=== PATIENT | female | born 1980 | race Caucasian/White ===

== ENCOUNTER 2020-04-13 19:09 | Observation (INO) | payer SELFPAY ==
[~2020-04-13] VITALS: Ht 170.2 cm; Wt 59.1 kg
[2020-04-13 19:26] LABS: BILIRUBIN NEGATIVE (NEGATIVE); GLUCOSE NEGATIVE (NEGATIVE); KETONE SMALL mg/dL (NEGATIVE); NITRITE NEGATIVE (NEGATIVE)
[2020-04-13 19:27] LABS: BACTERIA MODERATE /hpf (NEGATIVE); EPITHELIAL CELLS 0-5 /hpf (0-5); RED CELLS - URINE 0-5 /hpf (0-5); WHITE CELLS - URINE 0-5 /hpf (NEGATIVE)
[2020-04-13 19:38] LABS: UDS - AMPHET POSITIVE QUAL (NEGATIVE); UDS - BARB NEGATIVE QUAL (NEGATIVE); UDS - BENZO NEGATIVE QUAL (NEGATIVE); UDS - COCAINE NEGATIVE QUAL (NEGATIVE); UDS - OPIATE NEGATIVE QUAL (NEGATIVE); UDS - PCP NEGATIVE QUAL (NEGATIVE); UDS - THC POSITIVE QUAL (NEGATIVE)
[2020-04-13 19:43] LABS: BASOPHILS 0.3 % (0-2); EOSINOPHILS 3.7 % (0-7); HEMATOCRIT 37.4 % (36.0-48.0); HEMOGLOBIN 12.6 g/dL (12-16); IMMATURE GRANULOCYTES 0.3 % (0-5); MCH 31.4 pg (26.0-34.0); MCHC 33.7 g/dL (31.0-37.0); MCV 93.3 fL (80.0-100.0); MEAN PLATELET VOLUME 11.7 fL (7.4-10.4); MONOCYTES 11.5 % (2-11); NEUTROPHILS 60.2 % (40-80); PLATELET COUNT 285 10x3/uL (130-400); RBC 4.01 10x6/uL (4.00-5.40); RDW 12.3 % (11.5-14.5); WBC 8.6 10x3/uL (4.8-10.8)
[2020-04-13] MEDS ORDERED: PERCOCET 10-321 EAC1 PO (19:44)
--- NOTE | 2020-04-13 19:50 | NUR ---
ADMINISTERED AMMONIA INHALENT UNDER NOSE PER DR. HOLLOWAY ORDER. PT THRASHES HEAD SIDE TO SIDE. PLACED UNDER NOSE AGAIN AND PT OPENS EYES. COAXED PT TO SPEAK AND PLACED UNDER NOSE AGAIN. PT BEGINS TO SPEAK AND ANSWER QUESTIONS.
[2020-04-13 19:53] LABS: CALC OSMOLALITY 279 mosm/kg (275-300); CALCIUM 9.4 mg/dL (8.5-10.1); CARBON DIOXIDE 25.2 mmol/L (21.0-32.0); CHLORIDE - SERUM 105 mmol/L (98-107); CREATININE - SERUM 0.8 mg/dL (0.6-1.3); GLUCOSE 101 mg/dL (74-106); HCG SERUM NEGATIVE (NEGATIVE); POTASSIUM - SERUM 4.1 mmol/L (3.5-5.1); SODIUM 140 mmol/L (136-145); UREA NITROGEN 16 mg/dL (7-18); eGFR NON AFRICAN AMERICAN 85 mL/min (90-120)
[2020-04-13 20:15] LABS: ALBUMIN 3.5 g/dL (3.4-5.0); ALKALINE PHOSPHATASE 63 U/L (30-120); ALT (SGPT) 21 U/L (10-68); APTT 31.4 SECONDS (22.8-39.4); BILIRUBIN - TOTAL 0.34 mg/dL (0.2-1.3); CKMB 0.3 U/L (0.0-3.6); CREATINE KINASE 247 UL (21-215); INR 1.18 (0.85-1.17); MAGNESIUM - SERUM 2.2 mg/dL (1.8-2.4); PROTEIN - SERUM 6.6 g/dL (6.4-8.2); PROTIME 14.9 SECONDS (11.6-15.0)
[2020-04-13 20:16] LABS: TROPONIN-I < 0.017 ng/mL (0.000-0.060)
[2020-04-13 21:47] VITALS: BP 104/70
--- NOTE | 2020-04-13 23:30 | NUR ---
RECEIVED PT TO FLOOR FROM ER VIA STRETCHER. PT A LITTLE UNCOOPERATIVE ABOUT GETTING INTO GOWN AND UNCOVERING HEAD TO ANSWER QUESTIONS. PT'S BOYFRIEND AT BEDSIDE. PT STATES SHE TAKES SEVERAL MEDICATIONS FOR VARIOUS THINGS SUCH HEART MEDICATIONS AND A PILL FOR BREAST CANCER BUT SHE DOESN'T KNOW THE NAMES OF ANY OF THE MEDICATIONS, EXCEPT FOR THE OXYCODONE THAT SHE DOES HAVE THE PRESCRIPTION BOTTLE FOR WITH A FEW PILLS LEFT IN IT. THESE ARE IN POSSESSION OF THE BOYFRIEND AT THIS TIME. PT STATES SHE TAKES THE OXYCODONE FOR BACK PAIN AND GASTROPARESIS PAIN SHE HAS AT TIMES. REVIEWED HISTORY. ASKED PT IF SHE HAS HAD SYNCOPAL EPISODES BEFORE TODAY. SHE SAYS SHE DOES SOMETIMES BUT USUALLY FOR ONLY A FEW MINUTES. UPON LEAVING ROOM, PT'S BOYFRIEND STATED THAT PT "PASSED OUT" AGAIN. NO RESPONSE TO CALLING HER NAME AND GENTLY SHAKING HER. TELEMETRY REPORTED 77 SR WITH NO CHANGES. PT RESPONDED IMMEDIATELY TO STERNAL RUB. BOYFRIEND MADE OK SIGN TO ME. INSTRUCTED PT/BOYFRIEND TO CALL IF ANY NEEDS. WILL REASSESS AND CONTINUE TO MONITOR.
[2020-04-14 00:10] VITALS: BP 96/47
[2020-04-14 02:30] VITALS: Ht 170.2 cm; Wt 59.1 kg
--- NOTE | 2020-04-14 02:39 | NUR ---
I have reviewed this patient and I concur with the Shift Assessment completed by the Licensed Practical Nurse today this shift.
[2020-04-14 04:30] VITALS: BP 93/53
[2020-04-14 06:19] LABS: BASOPHILS 0.4 % (0-2); EOSINOPHILS 5.2 % (0-7); HEMATOCRIT 34.4 % (36.0-48.0); HEMOGLOBIN 11.3 g/dL (12-16); IMMATURE GRANULOCYTES 0.1 % (0-5); LYMPHOCYTES 35.6 % (15-50); MCH 30.7 pg (26.0-34.0); MCHC 32.8 g/dL (31.0-37.0); MCV 93.5 fL (80.0-100.0); MEAN PLATELET VOLUME 11.7 fL (7.4-10.4); MONOCYTES 11.5 % (2-11); NEUTROPHILS 47.2 % (40-80); PLATELET COUNT 261 10x3/uL (130-400); RBC 3.68 10x6/uL (4.00-5.40); RDW 12.5 % (11.5-14.5); WBC 6.7 10x3/uL (4.8-10.8)
[2020-04-14 06:46] LABS: ALBUMIN 2.8 g/dL (3.4-5.0); ALKALINE PHOSPHATASE 53 U/L (30-120); ALT (SGPT) 19 U/L (10-68); BILIRUBIN - TOTAL 0.31 mg/dL (0.2-1.3); CARBON DIOXIDE 27.5 mmol/L (21.0-32.0); CHLORIDE - SERUM 110 mmol/L (98-107); CKMB 0.3 U/L (0.0-3.6); CREATINE KINASE 148 UL (21-215); CREATININE - SERUM 0.6 mg/dL (0.6-1.3); GLUCOSE 84 mg/dL (74-106); POTASSIUM - SERUM 3.5 mmol/L (3.5-5.1); PROTEIN - SERUM 5.1 g/dL (6.4-8.2); SODIUM 143 mmol/L (136-145); TROPONIN-I 0.018 ng/mL (0.000-0.060); eGFR NON AFRICAN AMERICAN > 90 mL/min (90-120)
[2020-04-14 06:47] LABS: CALC OSMOLALITY 282 mosm/kg (275-300); UREA NITROGEN 9 mg/dL (7-18)
--- NOTE | 2020-04-14 07:58 | NUR ---
RESTING IN BED, NO DISTRESS NOTED, EYES CLOSED, CONT TO MONITOR
[2020-04-14 09:49] VITALS: BP 103/66
[2020-04-14 12:15] VITALS: BP 86/53
[2020-04-14] MEDS ORDERED: MACROBID100 MG PO (13:08)
--- NOTE | 2020-04-14 15:00 | NUR ---
IV REMOVED, REVIEWED DC INSTRUCTION WITH PT, VOICED NO CONCERNS
== END 2020-04-14 15:09 | disposition home or self-care (01) ==
LOC: D.ER 19:09 → EDBD 19:09 → D.MS 20:52 → OBSVTIME 20:52 → D.MS 20:52
PROVIDERS: Family Medicine; ADMIT Family Medicine; ATTEND Family Medicine
DX: E86.0 Dehydration (principal); R55 Syncope and collapse; F15.10 Other stimulant abuse, uncomplicated; Z86.73 Personal history of transient ischemic attack (TIA), and cerebral infarction without residual deficits